=== PATIENT | female | born 1950 | race Caucasian/White ===

== ENCOUNTER → 2019-12-30 09:20 | Outpatient (CLI) | payer MEDICARE, SELFPAY ==
--- NOTE | ~2019-12-30 | MR_ITS ---
EXAMINATION: MR knee LT wo con DATE: 12/30/2019 10:07 INDICATION: Endotracheal meniscal tear presenting with medial sided left knee pain. TECHNIQUE: Magnetic resonance imaging (MRI) of the left knee was performed without intravenous contra st. Sequences included coronal PD-weighted FSE, coronal PD-weighted FS FSE, sagittal T2-weighted FSE , sagittal PD-weighted FS FSE and axial PD weighted fat saturated FSE. COMPARISON: Left knee radiographs dated 12/22/2019 FINDINGS: Medial compartment: Complex tear at the junction of the body and posterior horn of the medial meniscus which extends from the free edge in a parrot beak configuration through the inner third of the meniscus, then propagati ng in a more horizontal fashion through the mid third of the meniscus and extending to the inferior a rticular surface in the peripheral third. There is a small meniscal flap on the posterior inferior ma rgin of the medial side of the posterior horn which is displaced posteriorly along the inferior rim o f the medial tibial plateau. There is mild likely reactive marrow edema along the underlying posterio r aspect of the tibial plateau without evident overlying chondromalacia. Articular cartilage in the m edial compartment appears normal. Lateral compartment: Lateral meniscus is normal. Articular cartilage is normal. Patellofemoral compartment: Articular cartilage is normal. Ligaments and tendons: Anterior and posterior cruciate ligaments are normal. The medial collateral ligament and fibular hesham ateral ligament complex are normal. The extensor mechanism is normal. The visualized medial and later al hamstring tendons as well as the iliotibial band are normal. Fluid: Very small knee joint effusion at the suprapatellar pouch. No loose osteochondral bodies identified. Small to moderate-sized Mariee's cyst measuring 1.6 x 0.6 cm maximal transaxial dimensions and extendi ng 5.5 cm craniocaudally. Osseous/other: Siphon edema at the posterior margin of the medial tibial plateau there is normal marrow signal. No f racture or abnormal marrow replacing process. IMPRESSION: 1. Complex tear at the junction of the posterior body and posterior horn of the medial meniscus with small displaced peripheral posterior inferior meniscal flap and likely reactive underlying marrow scott ma at the posterior aspect of the medial tibial plateau. 2. Likely reactive very small left knee joint effusion. 3. Small to moderate Mariee's cyst. Reviewed, dictated and finalized at location A. IMPRESSION: 1. Complex tear at the junction of the posterior body and posterior horn of the medial meniscus with small displaced peripheral posterior inferior meniscal fl ap and likely reactive underlying marrow edema at the posterior aspect of the m edial tibial plateau. 2. Likely reactive very small left knee joint effusion. 3. Small to moderate Mariee's cyst.
== END ==
PROVIDERS: Visit Provider Orthopaedic Surgery
DX: S83.242A Other tear of medial meniscus, current injury, left knee, initial encounter (principal); X58.XXXA Exposure to other specified factors, initial encounter
CPT/HCPCS: 73721

== ENCOUNTER 2020-01-12 11:24 | Outpatient (CLI) | payer MEDICARE, SELFPAY ==
--- NOTE | 2020-01-12 11:26 | ECG_ITS ---
Measurements Intervals [place] Rate: 62 P: 46 GA: 175 QRS: 5 QRSD: 101 T: 29 QT: 392 QTc: 400 Interpretive Statements SINUS RHYTHM DELAYED PRECORDIAL R/S TRANSITION VOLTAGE CRITERIA FOR LVH BASELINE ARTIFACT- I, III, AVL, AVF BORDERLINE ECG Electronically Signed On 01-12-2020 11:35:11 CDT by Giovany Villa D.O.
[2020-01-12 11:52] LABS: Anion Gap 4 mmol/L (8-16); Blood Urea Nitrogen 25 mg/dL (7-17); Calcium 10.1 mg/dL (8.4-10.2); Carbon Dioxide 31 mmol/L (22-30); Chloride 101 mmol/L (98-107); Estimated Glomerular Filt Rate > 60; Glucose 103 mg/dL (65-105); Sodium 136 mmol/L (137-145)
== END 2020-01-12 11:25 | disposition home or self-care (01) ==
PROVIDERS: Anesthesiology; PCP Internal Medicine; Visit Provider Orthopaedic Surgery
DX: Z01.818 Encounter for other preprocedural examination (principal); I10 Essential (primary) hypertension
CPT/HCPCS: 36415; 80048; 93005

== ENCOUNTER 2020-01-13 03:14 | Outpatient (CLI) | payer MEDICARE, SELFPAY ==
[2020-01-13 20:04] LABS: SARS-CoV-2 RNA PCR Negative
== END 2020-01-13 03:15 | disposition home or self-care (01) ==
LOC: ANHCOVIDDT 03:14
PROVIDERS: Visit Provider Orthopaedic Surgery
DX: Z01.812 Encounter for preprocedural laboratory examination (principal); Z11.59 Encounter for screening for other viral diseases
CPT/HCPCS: 87635; C9803; U0003

== ENCOUNTER 2020-01-15 01:01 | Day surgery (SDC) | payer MEDICARE, SELFPAY ==
[2020-01-08 11:54] VITALS: BMI 29.5
[2020-01-15] VITALS (11 sets, daily range): BP systolic 120–158; BP diastolic 54–85; PULSE 70–99; RESP 12–20; TEMP 36.4–36.8; O2SAT 95–100
--- NOTE | 2020-01-15 07:25 | WPDHPUPDATE1 ---
History and Physical Update Update Date/Time: 01/15/20 07:25 History and Physical has been reviewed, including an updated exam of the patient. There are NO changes in the patient's condition. Risks, benefits, and alternatives have been discussed and questions answered. Patient agrees to proceed with procedure.
--- NOTE | 2020-01-15 08:13 | WPDANESEPP ---
Anes - Eval Pre Procedure Procedure: Operation Date: 01/15/20 10:30 Proposed Procedures p Arthroscopic Partial Medial Meniscectomy Left Knee, Proceed As Indicated - Shay Akins MD Date/Time: 01/15/20 08:13 Pre Op Diagnosis: medial meniscus tear left knee Patient Data Age: 69 Gender: F Height: 5 ft 6 in Weight: 83.05 kg Allergies Allergy/AdvReac Type Severity Reaction Status Date / Time propofol [From Diprivan] Allergy Unknown high Verified 01/08/20 10:50 fever, chills and abn.liver levels Home Medications Medication Instructions Recorded Confirmed Type atorvastatin 10 mg tablet 10 mg PO DAILY 09/22/19 01/08/20 History chlorthalidone 25 mg tablet 25 mg PO DAILY 09/22/19 01/08/20 History lisinopril 40 mg tablet 40 mg PO DAILY 09/22/19 01/08/20 History sertraline 25 mg tablet 50 mg PO DAILY 09/22/19 01/08/20 History ergocalciferol (vitamin D2) 50,000 unit PO WEEKLY 01/08/20 01/08/20 History [Vitamin D2] Patient hx anesthesia problems: none Family hx anesthesia problems: none PMFSH Past Medical History Medical History (Updated 01/15/20 @ 08:17 by Ramon Carrera CRNA) Acute medial meniscus tear of left knee Depression GERD (gastroesophageal reflux disease) Heartburn Hypertension STEVE (obstructive sleep apnea) PONV (postoperative nausea and vomiting) Surgical History Surgical History History of ankle surgery (~2004) Spur Removal History of carpal tunnel release (~1999) History of total right knee replacement (~03/2008) Status post total knee replacement, right Family History Family History Father Family history of congenital heart disease Family history of arthritis Mother Family history of arthritis Family history of lymphoma Social History Social History Smoking status: Never smoker Alcohol intake: never Living arrangements: with family Spiritual care concerns: No Exam Day of Procedure 01/15/20 08:13 Patient weight: overweight Neurological: alert and oriented
[2020-01-15] MEDS: LACTATED RINGERS 1,000 ML 30 ML IV CONT (09:15)
[2020-01-15] MEDS: ACETAMINOPHEN 500 MG TABLET 1000 MG PO (09:16)
--- NOTE | 2020-01-15 09:28 | WPDANESEFPP ---
Anes - Eval Final PreProcedure Day of Procedure 01/15/20 09:28 Patient weight: overweight Heart: regular rate and rhythm Lungs: clear to auscultation Airway: Mallampati scale class II Neurological: alert and oriented Last oral intake: >/= 8 hours ASA classification: III Emergent: no Anesthetic plan: proceed Anesthesia type and monitoring: general LMA and standard monitoring Informed Consent: The patient's anesthetic plan and its attendant risks and benefits were discussed with the patient/family/POA. Questions were solicited and answers provided to the satisfaction of the patient/family/POA.
[2020-01-15] MEDS: ceFAZolin 2 GM/D5W 50 ML 2 GM/50 ML BAG IVPB (10:30)
[2020-01-15] MEDS: KETOROLAC 15 MG/ML VIAL (*BKC) IV PUSH (10:34)
[2020-01-15] MEDS: BUPIVACAINE/EPINEPHRINE 0.5% 10 ML VIAL 20 ML INFILTRATE (10:48)
--- NOTE | 2020-01-15 12:16 | PM.PROC ---
Procedure Note - Detailed Date of procedure: 01/15/20 Pre-op diagnosis: medial meniscus tear left knee Medial meniscus tear. Post-op diagnosis: same Procedure performed: Arthroscopic partial medial meniscectomy. Description of procedure: Near complete radial split at the posterior medial meniscus. Complex horizontal component posteriorly. Subtotal meniscectomy performed posterior and medial. The superior leaflet was left intact as able on the posterior aspect. Radiofrequency probe was used to stabilize the remaining tissue. Grade 1 chondromalacia on the medial femoral condyle. Anterior cruciate ligament and lateral compartment normal. Patellofemoral compartment also appeared essentially normal. Anesthesia: GETA Surgeon: Shay Akins MD Estimated blood loss (mL): 5 Complications: None Condition: stable Disposition: PACU Findings: Brief History: The patient complained of knee pain, swelling and mechanical symptoms despite conservative treatment. MRI confirmed the presence of a meniscus tear. Procedure Details: The patient was identified and the surgical site confirmed and signed in the preoperative holding area. Antibiotics were started per protocol. She was brought to the operative room and transferred to the OR table. A general anesthetic was administered. Supine position with the operative lower extremity position in the leg vaz after placement of a well padded tourniquet. The leg support was lowered and the contralateral limb was supported with a soft bolster. The knee was prepped and draped in the usual sterile fashion. A time-out was performed. The portal sites were marked and infiltrated with 0.5% Marcaine 20 mL. The limb was exsanguinated and the tourniquet inflated to 300 mL Hg. Standard inferolateral and inferomedial portals were established. Inflow was obtained with the saline pump. The camera was introduced. Diagnostic inspection of the joint was accomplished. The meniscus was debrided with the arthroscopic shaver, radiofrequency Wand, and punches until stable. The arthroscopic instruments were removed. The tourniquet released and wounds closed with subcutaneous 3-0 Monocryl absorbable suture. Steri strips and a sterile dressing were applied. A light elastic wrap was placed. The patient was extubated and brought to the recovery room in stable condition.
== END 2020-01-15 14:10 | disposition home or self-care (01) ==
PROVIDERS: PCP Internal Medicine; Visit Provider Orthopaedic Surgery
PROC: (CPT 29870; principal; 2020-01-15 10:30)
DX: S83.232A Complex tear of medial meniscus, current injury, left knee, initial encounter (principal); X50.0XXA Overexertion from strenuous movement or load, initial encounter; I10 Essential (primary) hypertension; K21.9 Gastro-esophageal reflux disease without esophagitis; G47.33 Obstructive sleep apnea (adult) (pediatric); F32.9 Major depressive disorder, single episode, unspecified
CPT/HCPCS: 29881; A9270; J0690; J1100; J1885; J2250; J2405; J2704; J3010; J7120

== ENCOUNTER 2020-01-19 09:41 | Outpatient (RCR) | payer MEDICARE, SELFPAY ==
--- NOTE | 2020-01-19 10:55 | PTOPEVAL ---
PHYSICAL THERAPY EVALUATION AND PLAN OF CARE 01-19-2020 Thank you for referring Maris Morrell to [facility].? Her plan of care is? 0-2 x/week for 4 weeks. She is doing well post-op, was issued a home exercise program and is independent with it. Maris is to call if she has any further questions or if she needs to return for additional therapy sessions. Please review, sign, date and return this plan of care POLLO. I agree with and certify that the following plan of care is medically necessary. Referring Physician Date Attending Provider: Shay Akins MD *PT Outpatient Evaluation Document 01/19/20 10:00 MARY JO (Rec: 01/19/20 10:48 MARY JO [id number]) Therapy Assessment Status Assessment Status Assessment Status Evaluation Outpatient Past Medical History Past Medical History Source of Past Medical History Patient Neurological History Hx Neurological Disorders No Significant History Cardiovascular History Hx Hypercholesterolemia Yes: meds control Hx Hypertension Yes: med control Respiratory History Hx Sleep Apnea Yes: USES CPAP Gastrointestinal History Hx Gastroesophageal Reflux Disease Yes Genitourinary History Hx Genitourinary Disorders No Significant History Musculoskeletal History Hx Arthritis Yes: GENERALIZED Hx Joint Replacement Yes: 2008 RTKA Hx Orthopedic Surgery Yes: LT ANKLE SPUR REMOVED, RT CARPAL TUNNEL RELEASE Hx Other Musculoskeletal Disorders Yes: LT MEDIAL MENISCUS TEAR- with arthroscopy 01-15-20 Hematological History Hx Blood Transfusions Yes: 2008 POST RTKA Endocrine History Hx Endocrine Disorders No Significant History HEENT History Hx Cataracts Yes: RT CATARACT REMOVED Hx Other HEENT Disorders Yes: GLASSES Integumentary History Hx Skin Disorders No Significant History Reproductive History Hx Post Menopausal Yes Psychosocial History Hx Depression Yes Pain History History of Any Previous or Ongoing No Significant History Instance of Pain Anesthesia History Hx Post-Op Nausea/Vomiting Yes Evaluation Information Problem Diagnosis s/p L medial meniscus tear with arthroscopy Onset 01-15-20 Subjective Information torn in July 2019; had Query Text:As Reported By Patient/ cortisone shot from another dr Family , continued to have pain, then went to see Dr Akins; since surgery last week, doing SLR and take easy around house this weekend; used crutches until yesterday; WOMAC self assessment questionnaire 25%
--- NOTE | 2020-02-27 11:52 | PCPTNOTE ---
PHYSICAL THERAPY DISCHARGE 02-27-2020 Attending Provider: Shay Akins MD Patient:Maris Morrell Date of :1950 Mrs. Morrell has not returned for any further treatments since the PT evaluation on 01/19/2020, s/p L knee arthroscopy. She was issued a home exercise program and was to call if there were any further needs. She did not return for any further treatment, therefore, she will be discharged at this time. The goals were not assessed. Thank you for referring Maris to [facility]. Please review, sign, date and return this discharge summary POLLO. I have been updated about the patient's current status and I agree with discharge from the above service at this time. Referring Physician Date
== END 2020-03-01 09:41 | disposition home or self-care (01) ==
LOC: ANHPT 09:41
PROVIDERS: Visit Provider Orthopaedic Surgery
DX: Z48.89 Encounter for other specified surgical aftercare (principal); S83.242D Other tear of medial meniscus, current injury, left knee, subsequent encounter
CPT/HCPCS: 97161